=== PATIENT | male | born 1990 | race Caucasian/White ===

== ENCOUNTER 2019-02-19 11:55 | Emergency (ER) | payer MEDICAID ==
[~2019-02-19] VITALS: Ht 175.3 cm; Wt 68.3 kg
[2019-02-19 16:30] VITALS: BP 130/89
[2019-02-19] MEDS ORDERED: DIPHENHYDRAMINE 25MG CAPSULE PO ONE (17:15)
== END 2019-02-19 17:45 | disposition home or self-care (01) ==
LOC: ER 12:09
DX: L73.9 Follicular disorder, unspecified (principal); F15.10 Other stimulant abuse, uncomplicated
CPT/HCPCS: 99283; Q0163; 99282